=== PATIENT | male | born 1975 | race Caucasian/White ===

== ENCOUNTER 2024-12-18 02:05 | Emergency (ER) | payer MEDICAID, SELFPAY ==
[2024-12-18 02:05] VITALS: BMI 25.0
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
[2024-12-18 02:27] VITALS: BP 132/76; PULSE 72; RESP 18; TEMP 36.8; O2SAT 98
[2024-12-18] MEDS: CLINDAMYCIN 150 MG CAPSULE 300 MG PO (04:12)
--- NOTE | 2024-12-18 04:25 | PC.NURSE ---
WOUND WAS CLEANED. DRESSING APPLIED. PT INSTRUCTED ON CARE AND GIVEN SUPPLIES.
== END 2024-12-18 04:54 | disposition home or self-care (01) ==
LOC: SERX 04:41
PROVIDERS: Emergency Provider Emergency Medicine
DX: S81.811A Laceration without foreign body, right lower leg, initial encounter (principal); V19.3XXA Pedal cyclist (driver) (passenger) injured in unspecified nontraffic accident, initial encounter; Y93.55 Activity, bike riding
CPT/HCPCS: 99284; A9270